=== PATIENT | female | born 1980 | race Caucasian/White ===

== ENCOUNTER → 2018-04-25 | Outpatient (CLI) | payer BC ==
[~2018-04-25] MED LIST: ACE3 PO; IBU600 PO; IBUP-1455 PO; ONDA4TAB PO; PNV1TABL92 PO; SUCR1TAB85 PO; multivit
--- NOTE | 2018-04-25 10:05 | RADIOLOGY IMAGING REPORT ---
FACILITY: [facility] [place] PATIENT NAME: Miles De La Torre : 1980 MR: [id number] V: [id number] EXAM DATE: ORDERING PHYSICIAN: KATH MUNOZ TECHNOLOGIST: Location: [facility] Patient: Miles De La Torre : 1980 Visit/Account:[id number] Date of Sevice: 04/25/2018 GALLBLADDER HISTORY: Right upper quadrant tenderness and pain. COMPARISON: None. FINDINGS: Liver: Negative. Gallbladder: Unremarkable; no stones or sludge. Common duct: Normal, 3 mm diameter. Pancreas: Partially obscured by bowel, visualized aspects unremarkable. Right kidney: Negative. Upper abdominal aorta and IVC: Patent. Ascites: None visualized. IMPRESSION: Normal right upper quadrant ultrasound. Report Dictated By: Eduardo Deshpande MD at 04/25/2018 10:00 AM Report E-Signed By: Eduardo Deshpande MD at 04/25/2018 10:01 AM WSN:[id number]
== END ==
LOC: US 04-16 01:53
PROVIDERS: ATTEND Physician Assistant
DX: R10.811 Right upper quadrant abdominal tenderness (principal)
CPT/HCPCS: 76705